=== PATIENT | male | born 1955 | race African-American/Black ===

== ENCOUNTER 2021-03-08 19:52 | Emergency (ER) | payer BC ==
[~2021-03-08] VITALS: Ht 185.4 cm; Wt 90.5 kg
[2021-03-08 19:56] VITALS: TEMP 97.4
[2021-03-08] MEDS ORDERED: COZAAR 50MG50 MG/TAB PO (20:25)
[2021-03-08] MEDS ORDERED: ALDACTONE 25MG25 M1 PO (20:25)
[2021-03-08] MEDS ORDERED: DHEA 50 MG TAB1 EACH PO (20:26)
[2021-03-08] MEDS ORDERED: FERROUSAL325 MG PO (20:26)
[2021-03-08] MEDS ORDERED: VITAMIND3 5000 PO (20:26)
[2021-03-08] MEDS ORDERED: ZYRTEC 10MG10 MG PO (20:27)
[2021-03-08 21:38] VITALS: BP 129/77; PULSE 82
== END 2021-03-08 21:43 | disposition home or self-care (01) ==
LOC: COL.ER 19:52
DX: E86.0 Dehydration (principal); R55 Syncope and collapse; I10 Essential (primary) hypertension; Z79.899 Other long term (current) drug therapy
CPT/HCPCS: J2405; J7030